=== PATIENT | male | born 1975 | race Hispanic/Latino ===

== ENCOUNTER 2025-02-25 23:15 | Emergency (ER) | payer SELFPAY ==
[~2025-02-25] VITALS: Ht 180.3 cm; Wt 102.1 kg
[2025-02-25 23:17] VITALS: TEMP 98.6
[2025-02-26 00:01] LABS: LEUKOCYTE ESTERASE ,URINE NEGATIVE (NEGATIVE); PROTEIN,URINE DIPSTICK TRACE (NEGATIVE); URINE UROBILINOGEN 0.2 mg/dL (0.2 - 1)
[2025-02-26 00:19] LABS: EPITHELIAL CELLS,URINE FEW /LPF
[2025-02-26 01:00] VITALS: PULSE 59; RESP 18
[2025-02-26] MEDS ORDERED: KETOROLAC TROME10 MG PO (01:34)
[2025-02-26] MEDS ORDERED: ONDANSETRON ODT4 MG SL (01:34)
[2025-02-26] MEDS ORDERED: MACROBID 100 M100 MG PO (01:34)
[2025-02-26] MEDS ORDERED: FLOMAX0.4 MG PO (01:34)
[2025-02-26] MEDS: KETOROLAC TROMETHAMINE 60 MG/2 ML VIAL IM ONE (01:46)
[2025-02-26 02:07] VITALS: BP 126/71; PULSE 74; RESP 18; TEMP 97.9; O2SAT 99
== END 2025-02-26 01:55 | disposition home or self-care (01) ==
LOC: ER 02-26 00:34
DX: R10.31 Right lower quadrant pain (principal); N13.2 Hydronephrosis with renal and ureteral calculous obstruction; R31.9 Hematuria, unspecified
CPT/HCPCS: 74176; 81001; 99283; J1885